=== PATIENT | male | born 1940 | race Caucasian/White ===

== ENCOUNTER 2017-06-03 12:29 | Emergency (ER) | payer BC, OTHER ==
[2017-06-03 13:04] VITALS: BMI 29.9
--- NOTE | 2017-06-03 13:50 | PDOC ---
History of Present Illness - General Chief Complaint: Back Pain Stated Complaint: RIGHT LOWER BACK PAIN Time Seen by Provider: 06/03/17 13:13 - History of Present Illness Initial Comments: 06/03/17 13:53 76-year-old male hx CAD s/p stent, HTN, HL, disc disease, hyponatremia s/p seizure 1 year ago (sodium at the time was 113) presents to the emergency department with 3 weeks of right-sided flank pain. Patient reports feeling sharp and is worse in certain positions such as raising his arms over his head or twisting. He reports he has not been able to sleep as much due to the right flank pain. Today his said that he was moaning in his sleep last night due to pain and decided to have it evaluated in the emergency department today. They saw his primary doctor last week and he was prescribed a muscle relaxer which she states has not helped. He has also tried taking Aleve with minimal relief. He denies any trauma that preceded the pain. He also has associated decreased appetite but denies nausea, vomiting, urinary symptoms. He reports he was constipated 3 days ago, took MiraLAX and had a normal bowel movement yesterday. Denies any history of similar pain. Denies chest pain, shortness of breath, headache, weakness, numbness. Denies fevers/chills. Past History - Past Medical History Allergies/Adverse Reactions: Allergies Allergy/AdvReac Type Severity Reaction Status Date / Time No Known Drug Allergies Allergy Verified 06/03/17 12:53 Home Medications: Ambulatory Orders Cholecalciferol (Vitamin D3) [Vitamin D-3] 2,000 unit PO DAILY 02/27/14 Ubidecarenone [Coq-10] 300 mg PO DAILY 02/27/14 Aspirin [ASA -] 81 mg PO DAILY 06/03/17 Furosemide [Lasix] 40 mg PO DAILY 06/03/17 Lactose-Reduced Food [Nutritional Shake] 237 ml PO ASDIR 06/03/17 Lisinopril 10 mg PO DAILY 06/03/17 Metoprolol Succinate 25 mg PO DAILY 06/03/17 Multivit-Min/FA/Lycopen/Lutein [Centrum Silver Tablet] 1 each PO DAILY 06/03/17 Rosuvastatin [Crestor -] 10 mg PO DAILY 06/03/17 Anemia: No Asthma: No Cancer: No Cardiac Disorders: Yes (H/O STENTS X6,NO CA,FOUND ON STRESS TEST) CVA: No COPD: No CHF: No Dementia: No Diabetes: No GI Disorders: Yes (HIATAL HERNIA) Disorders: Yes (BPH) HTN: Yes Hypercholesterolemia: Yes Liver Disease: No Seizures: No Thyroid Disease: No Other medical history: VIEJAS,hyponatremia - Surgical History Abdominal Surgery: No Appendectomy: Yes Cardiac Surgery: Yes (6 STENTS 2004,LAST STRESS TEST 9 MOS AGO [place]) Cholecystectomy: No Lung Surgery: No Neurologic Surgery: No Orthopedic Surgery: Yes (RIGHT SHOULDER REPLACEMENT) - Suicide/Smoking/Psychosocial Hx Smoking History: Former smoker Have you smoked in the past 12 months: No If you are a former smoker, when did you quit?: 2003 Information on smoking cessation initiated: No Hx Alcohol Use: Yes (wine daily) Drug/Substance Use Hx: No Substance Use Type: Alcohol Hx Substance Use Treatment: No Review of Systems - Review of Systems Comments:: 06/03/17 14:02 GENERAL/CONSTITUTIONAL: No fever or chills. No weakness. HEAD, EYES, EARS, NOSE AND THROAT: No change in vision. No ear pain or discharge. No sore throat. GASTROINTESTINAL: No nausea, vomiting, diarrhea or constipation. +flank pain GENITOURINARY: No dysuria, frequency, or change in urination. CARDIOVASCULAR: No chest pain or shortness of breath. RESPIRATORY: No cough, wheezing, or hemoptysis. MUSCULOSKELETAL: No joint or muscle swelling or pain. No neck or back pain. SKIN: No rash NEUROLOGIC: No headache, vertigo, loss of consciousness, or change in strength/ sensation. ENDOCRINE: No increased thirst. No abnormal weight change. HEMATOLOGIC/LYMPHATIC: No anemia, easy bleeding, or history of blood clots. ALLERGIC/IMMUNOLOGIC: No hives or skin allergy. *Physical Exam - Vital Signs Last Vital Signs Temp Pulse Resp BP Pulse Ox 97.6 F 82 16 158/92 100 06/03/17 12:32 06/03/17 12:32 06/03/17 12:32 06/03/17 12:32 06/03/17 12:32 - Physical Exam Comments: 06/03/17 14:03 GENERAL: Awake, alert, and fully oriented, in no acute distress HEAD: No signs of trauma EYES: PERRLA, EOMI, sclera anicteric, conjunctiva clear ENT: Auricles normal inspection, hearing grossly normal, nares patent, oropharynx clear without exudates. Moist mucosa NECK: Normal ROM, supple, no lymphadenopathy, JVD, or masses LUNGS: Breath sounds equal, clear to auscultation bilaterally. No wheezes, and no crackles HEART: Regular rate and rhythm, normal S1 and S2, no murmurs, rubs or gallops ABDOMEN: Soft, normoactive bowel sounds. No guarding, no rebound. No masses. + R sided ttp to the flank area. No CVAT. EXTREMITIES: Normal range of motion, no edema. No clubbing or cyanosis. No cords, erythema, or tenderness BACK: no midline spinal cervical, thoracic, lumbar ttp NEUROLOGICAL: Normal speech, cranial nerves intact, negative pronator drift, 5/ 5 strength in all 4 extremities, normal sensation to light touch in all 4 extremities, normal cerebellar exam, normal gait, normal reflexes and tone SKIN: Warm, Dry, normal turgor, no rashes or lesions noted. ED Treatment Course - LABORATORY CBC & Chemistry Diagram: 06/03/17 14:10 06/03/17 14:10 Medical Decision Making - Medical Decision Making 06/03/17 14:04 76-year-old male with multiple medical problems presents with 3 weeks of right- sided flank pain. Vitals with slightly high blood pressure, otherwise unremarkable. Exam with right-sided flank tenderness to palpation. Differential includes musculoskeletal pain versus cholecystitis versus renal colic versus appendicitis. Plan: -labs -CTAP -UA -declines pain meds 06/03/17 16:52 Labs/UA neg. CTAP with no acute pathology, some spinal foraminal narrowing, but pt neuro intact. Pain is likely MSK. Pt informed of results, requests DC home. I discussed the physical exam findings, ancillary test results and final diagnoses with the patient. I answered all of the patient's questions. The patient was satisfied with the care received and felt comfortable with the discharge plan and treatment plan. The patient will call their primary care physician within 24 hours to arrange follow-up and will return to the Emergency Department with any new, persistent or worsening symptoms. *DC/Admit/Observation/Transfer Diagnosis at time of Disposition: Back pain - Discharge Dispostion Disposition: HOME Condition at time of disposition: Good Admit: No - Referrals Referrals: Emely Ortiz MD [Primary Care Provider] - - Patient Instructions Printed Discharge Instructions: DI for Low Back Pain, DI for Thoracic Back Pain Additional Instructions: Follow-up with your primary care doctor within 2-3 days. Return to the emergency department if you have any new, worsening or concerning symptoms. - Post Discharge Activity - Attestations Physician Attestion: 06/03/17 16:54 I, Dr. Yosvany Harmon MD, attest that this document has been prepared under my direction and personally reviewed by me in its entirety. I further attest, that it accurately reflects all work, treatment, procedures and medical decision -making performed by me.
[2017-06-03 14:13] LABS: URINE APPEARANCE Clear; URINE BILIRUBIN Negative (NEGATIVE); URINE BLOOD Negative (NEGATIVE); URINE COLOR YELLOW; URINE GLUCOSE (UA) Negative (NEGATIVE); URINE KETONE Negative (NEGATIVE); URINE LEUK ESTERASE Negative (NEGATIVE); URINE NITRITE Negative (NEGATIVE); URINE PROTEIN Negative (NEGATIVE); URINE UROBILINOGEN 0.2 (0.2-1.0)
[2017-06-03 14:29] LABS: BASO % 0.4 % (0-2.0); EOS % 2.3 % (0-4.5); HEMATOCRIT 42.4 % (35.4-49); HEMOGLOBIN 14.1 GM/dl (11.7-16.9); LYMPH % 24.5 % (8-40); MCHC 33.4 g/dl (32.0-35.9); MEAN CELL VOLUME 90.1 fl (80-96); MEAN PLT VOLUME 6.9 fl (7.5-11.1); NEUT % 60.8 % (42.8-82.8); PLATELET COUNT 208 K/MM3 (134-434); RDW 12.6 % (11.9-15.9); WHITE BLOOD COUNT 5.6 K/mm3 (4.0-10.8)
[2017-06-03 14:40] LABS: ALBUMIN 3.9 g/dl (3.5-5.0); ALK PHOS 63 U/L (32-92); ANION GAP 7 (8-16); BILIRUBIN,TOTAL 0.7 mg/dl (0.2-1.0); BLOOD UREA NITROGEN 14 mg/dl (7-18); CHLORIDE 92 mmol/L (98-107); CO2 27 mmol/L (22-28); CREATININE 0.9 mg/dl (0.6-1.3); GLUCOSE,RANDOM 97 mg/dl (74-106); POTASSIUM 4.5 mmol/L (3.5-5.1); SGOT/AST 29 U/L (10-42); SGPT/ALT 19 U/L (10-40); SODIUM 126 mmol/L (136-145); TOT PROT 7.2 g/dl (6.4-8.3)
[2017-06-03 16:02] LABS: LIPASE 132 U/L (73-393)
[2017-06-03 16:25] VITALS: BP 130/75; PULSE 80; TEMP 98.3
== END 2017-06-03 17:00 | disposition home or self-care (01) ==
LOC: FER 12:29
DX: M54.9 Dorsalgia, unspecified (principal); E78.5 Hyperlipidemia, unspecified; I10 Essential (primary) hypertension; E87.1 Hypo-osmolality and hyponatremia; Z95.5 Presence of coronary angioplasty implant and graft; Z87.891 Personal history of nicotine dependence; Z96.611 Presence of right artificial shoulder joint
CPT/HCPCS: 36415; 74177-TC; 80053; 81003; 83690; 85025; 87086; 99282-25